=== PATIENT | female | born 1970 | race Caucasian/White ===

== ENCOUNTER → 2019-11-06 | Outpatient (CLI) | payer OTHER ==
--- NOTE | 2019-11-12 15:19 | MAM ---
EXAM DESCRIPTION: 3D Screening BILATERAL : Digital Mammography. CLINICAL HISTORY: 49 years Female SCREENING . "Stinging pain" in lower left breast extending nipple. No complaints. Mother with breast cancer at age 65. Menarche age 11. Childbirth age 29. Menopause age 46. No HRT. Lifetime risk of developing breast cancer (Tyrer-Cuzick model)(%): 18.6. COMPARISON: Baseline study at this facility.. No prior reports available. TECHNIQUE: Bilateral CC and MLO projection full-field images, digital tomosynthesis mammographic technique. Bilateral digital 2-D full-field MLO images. CAD available for 2-D images. FINDINGS: The breast parenchymal density pattern is: Scattered areas of fibroglandular density. No skin thickening or nipple retraction. Focal asymmetry bilaterally in the middle third of the breast upper outer quadrant. More prominent and focal on the left. Not associated with microcalcifications. Bilateral intramammary nodes. No new focal, stellate mass or density, and no suspicious microcalcifications right breast. IMPRESSION: BI-RADS CATEGORY: 0 - INCOMPLETE- Need additional imaging evaluation. RECOMMENDATIONS: FOLLOW-UP: Recall for additional imaging: Bilateral directed ultrasound of the regions of interest. 2-D and tomosynthesis full Field left breast LM projection. Written communication concerning the IMPRESSION and Follow-up, will be mailed to the patient and referring health care provider. Electronically signed by: Yair Gutierrez MD 11/12/2019 3:18 PM CDT
== END ==
LOC: MAMMO 14:32
PROVIDERS: ATTEND Obstetrics & Gynecology
DX: Z12.31 Encounter for screening mammogram for malignant neoplasm of breast (principal)

== ENCOUNTER → 2019-12-08 | Outpatient (CLI) | payer OTHER ==
--- NOTE | 2019-12-09 09:42 | MAM ---
EXAM DESCRIPTION: 3D Diagnostic, Left (accession [id number]), Breast,Bilateral (accession [id number]): Ultrasound CLINICAL HISTORY: 49 yearsFemaleINCONCLUSIVE MAMMOGRAM bilateral focal asymmetry. "Stinging pain" in lower left breast extending to the nipple. Mother with breast cancer at age 65. Menarche age 11. Childbirth age 29. Menopause age 46. No HRT Lifetime risk of developing breast cancer (Tyrer-Cuzick model)(%): 18.6. COMPARISON: Bilateral screening digital breast tomosynthesis November 06, 2019. TECHNIQUE: Left breast LM projection full-field images, digital tomosynthesis technique. Left breast 2-D digital full-field images: LM projection. CAD available for 2-D images.. Transcutaneous scanning of the bilateral breasts utilizing chowdary-scale and Doppler modes. Scanning performed by the truck jumper ; observation by Dr. Gutierrez. FINDINGS: Left breast parenchymal density pattern is: Scattered areas of fibroglandular density. No skin thickening or nipple retraction intramammary lymph nodes. Axillary lymph nodes. Focal asymmetry again visualized at approximately 2:00 position 8 cm from the nipple. No suspicious microcalcifications left breast. Ultrasound: Scanning regions of interest upper outer quadrant middle third bilateral breasts. Right breast: Scanning scanning right upper quadrant with emphasis on the region 9 cm from the nipple at 9:00. Mostly fibroglandular tissues with surrounding fatty tissues. No dominant solid mass, no distinct cyst, no fluid collection, and no large calcifications. No overlying skin changes. Scanning of the left breast with emphasis on the upper outer quadrant 9 to 12 cm from the nipple at 2:00. Large focus of fibroglandular tissue with surrounding fatty tissue. No dominant solid mass, no distinct cyst, no fluid collection, and no large calcifications. No overlying skin changes. IMPRESSION: Benign exam. BIRAD CATEGORY: 2 BENIGN FINDINGS. RECOMMENDATIONS: FOLLOW UP: Routine digital bilateral mammographic screening, one year interval from November 2019. Written communication explaining the IMPRESSION and follow-up, will be mailed to the patient and referring health care provider. The FINDINGS and the FOLLOW-UP plan were reviewed in person with the patient after the examination. According to the [employer], yearly mammograms are recommended starting at age 40 and continuing as long as a woman is in good health. Any breast change noted on a breast self-exam should be reported promptly to the patient's healthcare provider. Breast MRI is recommended for women with an approximately 20-25% or greater lifetime risk of breast cancer, including women with a strong family history of breast or ovarian cancer and women who have been treated for Hodgkin's disease. A negative mammographic report should not delay tissue diagnosis in patients with significant clinical history or physical findings. Extremely dense breast tissue limits the sensitivity of digital mammography. Electronically signed by: Yair Gutierrez MD 12/09/2019 9:40 AM CDT
== END ==
LOC: MAMMO 11:22
PROVIDERS: ATTEND Obstetrics & Gynecology
DX: R92.2 Inconclusive mammogram (principal)
CPT/HCPCS: 76641; 77065; G0279

== ENCOUNTER → 2020-06-18 | Outpatient (CLI) | payer BC | LOC: GMAJ 14:51 | PROVIDERS: ATTEND Family Medicine | DX: R53.83 Other fatigue (principal); R10.13 Epigastric pain; Z82.49 Family history of ischemic heart disease and other diseases of the circulatory system ==